=== PATIENT | male | born 1980 | race African-American/Black ===

== ENCOUNTER 2019-10-11 20:39 | Emergency (ER) | payer SELFPAY ==
[2019-10-11] MEDS ORDERED: Ketorolac Tromethamine 30 MG/ML VIAL ONE (21:04)
== END 2019-10-11 21:29 | disposition home or self-care (01) ==
LOC: MADERS 20:39
DX: M54.5 Low back pain (principal)
CPT/HCPCS: 96372; 99283; J1885

== ENCOUNTER 2021-10-27 16:50 | Emergency (ER) | payer OTHER ==
[2021-10-27] MEDS ORDERED: Ibuprofen 600 MG TAB ONE (17:35)
[2021-10-27] MEDS ORDERED: Cyclobenzaprine 10 MG TAB ONE (17:35)
[2021-10-27 18:20] LABS: Bilirubin Negative (Negative); Blood, Urine Negative (Negative); Clarity Clear (Clear); Glucose, Urine (Dipstick) Negative (Negative); Ketone, Urine Negative (Negative); Leukocyte Negative (Negative); Nitrite Negative (Negative); Protein, Urine (Dipstick) 30 mg/dL (Neg-Trace); pH, Urine 7.5 (5.0-9.0)
[2021-10-27 18:27] LABS: Bacteria/HPF Rare-Few HPF (None Seen); RBC/HPF None Seen HPF (0-3); Squamous Epithelial 0-3 HPF (0-3)
[2021-10-27 18:28] LABS: Mucous/LPF 1+ LPF (<2+)
== END 2021-10-27 18:46 | disposition home or self-care (01) ==
LOC: MADERS 16:50
DX: M54.50 Low back pain, unspecified (principal); Z87.891 Personal history of nicotine dependence
CPT/HCPCS: 81003; 81015; 99283

== ENCOUNTER 2021-12-04 15:14 | Emergency (ER) | payer OTHER ==
[2021-12-04] MEDS ORDERED: Acetaminophen 325 MG TAB ONE (17:02)
[2021-12-04] MEDS ORDERED: HYDROcodone/Acetaminophen 5/325 mg Tablet ONE (17:02)
[2021-12-04] MEDS ORDERED: Cyclobenzaprine 10 MG TAB ONE (17:02)
[2021-12-04] MEDS ORDERED: Ibuprofen 800 MG TAB ONE (17:02)
== END 2021-12-04 17:09 | disposition home or self-care (01) ==
LOC: MADERS 15:14
DX: M54.50 Low back pain, unspecified (principal); Z87.891 Personal history of nicotine dependence
CPT/HCPCS: 99283

== ENCOUNTER 2021-12-24 17:22 | Emergency (ER) | payer OTHER ==
[2021-12-24] MEDS ORDERED: Ibuprofen 800 MG TAB ONE (18:15)
[2021-12-24] MEDS ORDERED: Cyclobenzaprine 10 MG TAB ONE (18:15)
== END 2021-12-24 18:20 | disposition home or self-care (01) ==
LOC: MADERS 17:22
DX: M54.50 Low back pain, unspecified (principal); Z87.891 Personal history of nicotine dependence; X50.0XXA Overexertion from strenuous movement or load, initial encounter
CPT/HCPCS: 99283

== ENCOUNTER 2022-02-09 16:56 | Emergency (ER) | payer OTHER ==
[2022-02-09] MEDS ORDERED: Ibuprofen 800 MG TAB ONE (17:45)
== END 2022-02-09 18:36 | disposition home or self-care (01) ==
LOC: MADERS 16:56
DX: B35.1 Tinea unguium (principal); M79.674 Pain in right toe(s); Z87.891 Personal history of nicotine dependence